=== PATIENT | female | born 1980 | race Caucasian/White ===

== ENCOUNTER 2018-06-13 12:32 | Emergency (ER) | payer SELFPAY ==
[2018-06-13] MEDS ORDERED: Morphine 2 MG/ML Syringe IVPUSH ONE ×3 (13:00→15:06)
[2018-06-13] MEDS ORDERED: Ondansetron 4 MG/2 ML SDV IVPUSH ONE (13:00)
[2018-06-13] MEDS ORDERED: Sodium Chloride 0.9% 2.5 ML Syringe FLUSH PRN (13:00)
[2018-06-13] MEDS ORDERED: Sodium Chloride 0.9% 10 ML Syringe FLUSH PRN (13:00)
--- NOTE | 2018-06-13 13:02 | EDM.PDOC ---
ED HPI GENERAL MEDICAL PROBLEM - General Chief Complaint: Abdominal Pain Stated Complaint: ABD PAIN Time Seen by Provider: 06/13/18 12:55 Source of Information: Reports: Patient History Limitations: Reports: No Limitations - History of Present Illness INITIAL COMMENTS - FREE TEXT/NARRATIVE: History of present illness: Patient had an IUD removed from an emergency room 3 days ago in [place] and now has abdominal swelling and severe pain in her lower abdomen. Patient denies any vaginal discharge or vaginal bleeding. Patient is mildly constipated no vomiting or fevers. The patient's labs came back normal I asked her if her abdominal swelling is really new, she stated no she's had abdominal swelling for a long time. Review of systems: As per history of present illness and below otherwise all systems reviewed and negative. Past medical history: As per history of present illness and as reviewed below otherwise noncontributory. Surgical history: As per history of present illness and as reviewed below otherwise noncontributory. Social history: No reported history of drug or alcohol abuse. Family history: As per history of present illness and as reviewed below otherwise noncontributory. Physical exam: General: Well developed, well nourished in NAD HEENT: Atraumatic, normocephalic, pupils reactive, negative for conjunctival pallor or scleral icterus, mucous membranes moist, throat clear, neck supple, nontender, trachea midline. Lungs: Clear to auscultation, breath sounds equal bilaterally, chest nontender. Heart: S1S2, regular, negative for clicks, rubs, or JVD. Abdomen: Soft, distended lower abdominal tenderness without rebound or guarding. Absent for fluid wave. Negative for masses or hepatosplenomegaly. Negative for costovertebral tenderness. Pelvis: Stable nontender. Genitourinary: Deferred. Rectal: Deferred. Extremities: Atraumatic, negative for cords or calf pain. Neurovascular unremarkable. Neuro: Awake, alert, oriented. Cranial nerves II through XII unremarkable. Cerebellum unremarkable. Motor and sensory unremarkable throughout. Exam nonfocal. Skin:warm and dry Diagnostics: CBC, chemistry, urine, hCG all negative CT abdomen and pelvis normal fluid and stranding in the perirectal pelvis, moderate intrahepatic ejection panic biliary dilatation of uncertain etiology mild constipation, hemorrhagic cyst of the right ovary and mildly enlarged heterogeneous ayla hepatis lymph node Therapeutics: IV fluids and pain meds given ED Course: Patient remained stable while in the ED Impression: PID, constipation, hepatitis C with chronic liver disease Prescriptions: Flagyl Plan: Follow-up women[facility] tomorrow Definitive disposition and diagnosis as appropriate pending reevaluation and review of above. 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 Musculoskeletal History: Reports: None - Infectious Disease History Infectious Disease History: Reports: Chicken Pox - Past Surgical History Musculoskeletal Surgical History: Reports: Other (See Below) Other Musculoskeletal Surgeries/Procedures:: neck surgery Social & Family History - Family History Family Medical History: Noncontributory - Tobacco Use Smoking Status *Q: Current Every Day Smoker Years of Tobacco use: 20 Packs/Tins Daily: 1 - Caffeine Use Caffeine Use: Reports: Coffee - Recreational Drug Use Recreational Drug Use: Yes Recreational Drug Type: Reports: Marijuana/Hashish Recreational Drug Use Frequency: Daily ED ROS GENERAL - Review of Systems Review Of Systems: ROS reveals no pertinent complaints other than HPI. ED EXAM, GI/ABD - Physical Exam Exam: See Below (See history of present illness) Course - Vital Signs Last Recorded V/S: Last Vital Signs Temp 98.5 F 06/13/18 12:38 Pulse 98 06/13/18 12:38 Resp 20 06/13/18 12:38 BP 128/89 06/13/18 12:38 Pulse Ox 98 06/13/18 12:38 - Orders/Labs/Meds Orders: Active Orders 24 hr Category Date Time Status Abdomen Pelvis w Cont [CT] Stat Exams 06/13/18 13:00 Taken Saline Lock Insert [OM.PC] Stat Oth 06/13/18 12:59 Ordered Labs: Laboratory Tests 06/13/18 06/13/18 06/13/18 Range/Units 12:59 13:50 14:20 WBC 6.14 (4.0-11.0) K/uL RBC 5.08 (4.30-5.90) M/uL Hgb 16.2 H (12.0-16.0) g/dL Hct 44.9 (36.0-46.0) % MCV 88.4 (80.0-98.0) fL MCH 31.9 (27.0-32.0) pg MCHC 36.1 (31.0-37.0) g/dL RDW Std Deviation 42.7 (28.0-62.0) fl RDW Coeff of Ronald 13 (11.0-15.0) % Plt Count 211 (150-400) K/uL MPV 9.60 (7.40-12.00) fL Neut % (Auto) 51.1 (48.0-80.0) % Lymph % (Auto) 40.4 H (16.0-40.0) % [place] % (Auto) 6.8 (0.0-15.0) % Eos % (Auto) 1.5 (0.0-7.0) % Baso % (Auto) 0.2 (0.0-1.5) % Neut # (Auto) 3.1 (1.4-5.7) K/uL Lymph # (Auto) 2.5 H (0.6-2.4) K/uL [place] # (Auto) 0.4 (0.0-0.8) K/uL Eos # (Auto) 0.1 (0.0-0.7) K/uL Baso # (Auto) 0.0 (0.0-0.1) K/uL Nucleated RBC % 0.0 /100WBC Nucleated RBCs # 0 K/uL Sodium (136-145) mmol/L Potassium (3.5-5.1) mmol/L Chloride (98-107) mmol/L Carbon Dioxide (21.0-32.0) mmol/L BUN (7.0-18.0) mg/dL Creatinine (0.6-1.0) mg/dL Est Cr Clr Drug Dosing mL/min Estimated GFR (MDRD) ml/min Glucose (74-106) mg/dL Calcium (8.5-10.1) mg/dL Total Bilirubin (0.2-1.0) mg/dL AST (15-37) IU/L ALT (14-63) IU/L Alkaline Phosphatase (46-116) U/L Total Protein (6.4-8.2) g/dL Albumin (3.4-5.0) g/dL Globulin (2.0-3.5) g/dL Albumin/Globulin Ratio (1.3-2.8) Urine Color YELLOW Urine Appearance CLEAR Urine pH 6.0 (5.0-8.0) Ur Specific [place] 1.015 (1.001-1.035) Urine Protein NEGATIVE (NEGATIVE) mg/dL Urine Glucose (UA) NEGATIVE (NEGATIVE) mg/dL Urine Ketones NEGATIVE (NEGATIVE) mg/dL Urine Occult Blood TRACE-INTACT (NEGATIVE) Urine Nitrite NEGATIVE (NEGATIVE) Urine Bilirubin NEGATIVE (NEGATIVE) Urine Urobilinogen 0.2 (<2.0) EU/dL Ur Leukocyte Esterase NEGATIVE (NEGATIVE) Urine RBC 2-5 (0-2/HPF) Urine WBC 0-2 (0-5/HPF) Ur Epithelial Cells FEW (NONE-FEW) Urine Bacteria FEW (NEGATIVE) Urine HCG, Qual NEGATIVE (NEGATIVE) 06/13/18 Range/Units 14:20 WBC (4.0-11.0) K/uL RBC (4.30-5.90) M/uL Hgb (12.0-16.0) g/dL Hct (36.0-46.0) % MCV (80.0-98.0) fL MCH (27.0-32.0) pg MCHC (31.0-37.0) g/dL RDW Std Deviation (28.0-62.0) fl RDW Coeff of Ronald (11.0-15.0) % Plt Count (150-400) K/uL MPV (7.40-12.00) fL Neut % (Auto) (48.0-80.0) % Lymph % (Auto) (16.0-40.0) % [place] % (Auto) (0.0-15.0) % Eos % (Auto) (0.0-7.0) % Baso % (Auto) (0.0-1.5) % Neut # (Auto) (1.4-5.7) K/uL Lymph # (Auto) (0.6-2.4) K/uL [place] # (Auto) (0.0-0.8) K/uL Eos # (Auto) (0.0-0.7) K/uL Baso # (Auto) (0.0-0.1) K/uL Nucleated RBC % /100WBC Nucleated RBCs # K/uL Sodium 135 L (136-145) mmol/L Potassium 4.6 (3.5-5.1) mmol/L Chloride 101 (98-107) mmol/L Carbon Dioxide 26.7 (21.0-32.0) mmol/L BUN 17 (7.0-18.0) mg/dL Creatinine 0.9 (0.6-1.0) mg/dL Est Cr Clr Drug Dosing 69.42 mL/min Estimated GFR (MDRD) > 60.0 ml/min Glucose 90 (74-106) mg/dL Calcium 9.0 (8.5-10.1) mg/dL Total Bilirubin 0.5 (0.2-1.0) mg/dL AST 33 (15-37) IU/L ALT 44 (14-63) IU/L Alkaline Phosphatase 46 (46-116) U/L Total Protein 8.2 (6.4-8.2) g/dL Albumin 4.1 (3.4-5.0) g/dL Globulin 4.1 H (2.0-3.5) g/dL Albumin/Globulin Ratio 1.0 L (1.3-2.8) Urine Color Urine Appearance Urine pH (5.0-8.0) Ur Specific [place] (1.001-1.035) Urine Protein (NEGATIVE) mg/dL Urine Glucose (UA) (NEGATIVE) mg/dL Urine Ketones (NEGATIVE) mg/dL Urine Occult Blood (NEGATIVE) Urine Nitrite (NEGATIVE) Urine Bilirubin (NEGATIVE) Urine Urobilinogen (<2.0) EU/dL Ur Leukocyte Esterase (NEGATIVE) Urine RBC (0-2/HPF) Urine WBC (0-5/HPF) Ur Epithelial Cells (NONE-FEW) Urine Bacteria (NEGATIVE) Urine HCG, Qual (NEGATIVE) Meds: Medications Discontinued Medications Generic Name Dose Route Start Last Admin Trade Name Freq PRN Reason Stop Dose Admin Azithromycin 1,000 mg 06/13/18 17:00 06/13/18 16:58 Zithromax PO 06/13/18 17:01 1,000 mg Q24H ONE Administration Hydromorphone HCl 1 mg 06/13/18 13:37 06/13/18 17:20 Dilaudid IM 06/13/18 13:38 Not Given ONETIME ONE Ceftriaxone Sodium/Dextrose 1 50 mls @ 100 mls/hr 06/13/18 16:45 06/13/18 16: 57 gm/ Premix IV 06/13/18 17:14 100 mls/hr ONETIME ONE Administration Iopamidol 75 ml 06/13/18 16:54 06/13/18 16:55 Isovue Multipack-370 (76%) IVPUSH 06/13/18 16:55 75 ml ONETIME STA Administration Morphine Sulfate 4 mg 06/13/18 13:00 06/13/18 15:10 Morphine IVPUSH 06/13/18 13:01 4 mg ONETIME ONE Administration Morphine Sulfate 4 mg 06/13/18 13:38 06/13/18 14:01 Morphine IVPUSH 06/13/18 13:39 Not Given ONETIME ONE Morphine Sulfate 4 mg 06/13/18 13:42 06/13/18 13:44 Morphine IM 06/13/18 13:43 4 mg ONETIME ONE Administration Morphine Sulfate 4 mg 06/13/18 15:06 06/13/18 17:20 Morphine IVPUSH 06/13/18 15:07 Not Given ONETIME ONE Ondansetron HCl 4 mg 06/13/18 13:00 06/13/18 17:20 Zofran IVPUSH 06/13/18 13:01 Not Given ONETIME ONE Ondansetron HCl 4 mg 06/13/18 13:37 06/13/18 13:42 Zofran Odt PO 06/13/18 13:38 4 mg ONETIME ONE Administration Sodium Chloride 10 ml 06/13/18 13:00 Saline Flush FLUSH ASDIRECTED PRN Keep Vein Open Sodium Chloride 2.5 ml 06/13/18 13:00 Saline Flush FLUSH ASDIRECTED PRN Keep Vein Open Departure - Departure Time of Disposition: 17:30 Disposition: Home, Self-Care 01 Condition: Good Clinical Impression: Acute PID (pelvic inflammatory disease) - Discharge Information *PRESCRIPTION DRUG MONITORING PROGRAM REVIEWED*: No *COPY OF PRESCRIPTION DRUG MONITORING REPORT IN PATIENT SARINA: No Prescriptions: metroNIDAZOLE [Flagyl] 500 mg PO Q8H #30 tab Instructions: Pelvic Inflammatory Disease, [id number] Referrals: PCP,None [Primary Care Provider] - Forms: ED Department Discharge Additional Instructions: The following information is given to patients seen in the emergency department who are being discharged to home. This information is to outline your options for follow-up care. We provide all patients seen in our emergency department with a follow-up referral. The need for follow-up, as well as the timing and circumstances, are variable depending upon the specifics of your emergency department visit. If you don't have a primary care physician on staff, we will provide you with a referral. We always advise you to contact your personal physician following an emergency department visit to inform them of the circumstance of the visit and for follow-up with them and/or the need for any referrals to a consulting specialist. The emergency department will also refer you to a specialist when appropriate. This referral assures that you have the opportunity for follow-up care with a specialist. All of these measure are taken in an effort to provide you with optimal care, which includes your follow-up. Under all circumstances we always encourage you to contact your private physician who remains a resource for coordinating your care. When calling for follow-up care, please make the office aware that this follow-up is from your recent emergency room visit. If for any reason you are refused follow-up, please contact the [facility] Emergency Department at and asked to speak to the emergency department charge nurse. Rubi as [facility]. [facility] Primary Care - Women's [facility] [address] [place] [id number] - My Orders Last 24 Hours: My Active Orders 06/13/18 12:59 Saline Lock Insert [OM.PC] Stat 06/13/18 13:00 Abdomen Pelvis w Cont [CT] Stat - Assessment/Plan Last 24 Hours: My Active Orders 06/13/18 12:59 Saline Lock Insert [OM.PC] Stat 06/13/18 13:00 Abdomen Pelvis w Cont [CT] Stat
[2018-06-13] MEDS ORDERED: Ondansetron 4 MG Tab.DIS PO ONE (13:37)
[2018-06-13] MEDS ORDERED: HYDROmorphone 2 MG/ML SDV IM ONE (13:37)
[2018-06-13] MEDS ORDERED: Morphine 2 MG/ML Syringe IM ONE (13:42)
[2018-06-13 14:56] LABS: CHLORIDE,CL 101 mmol/L (98-107); SODIUM,NA 135 mmol/L (136-145)
[2018-06-13] MEDS ORDERED: cefTRIAXone 1 GM in Premix Bag 1 BAG IV ONE (16:45)
[2018-06-13] MEDS ORDERED: Iopamidol 755 MG/ML 200 ML Multipack Bottle IVPUSH STA (16:54)
[2018-06-13] MEDS ORDERED: Azithromycin 250 MG Tab PO ONE (17:00)
--- NOTE | 2018-06-14 10:27 | PCM.SN ---
- Free Text/Narrative Note: Called to ER for IV start on pt. with hx of IV drug use as well as hx of difficult IV placement. 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 Unsuccessful attempt to start IV times 2 attempts. Ultrasound utilized on third attempt and successful placement of 20ga IV catheter to left upper arm achieved. Pt tolerated procedure well.
--- NOTE | 2018-06-15 10:32 | CT ---
EXAM DATE: 06/13/18 PATIENT'S AGE: 37 Patient: COLTON STUBBS Facility: [place], [place] Site . Site : 1980 Study: CT Abdomen/Pelvis [id number]/[id number] 3:50:10 PM Ordering Physician: Franki Denise Final Report: INDICATION: Abdominal pain and distention. Pain. Status post IUD removal. TECHNIQUE: CT of the abdomen and pelvis performed after IV injection of 75 mL of Isovue- 370. FINDINGS: Bilateral breast implants. Small to moderate amounts of stool in the colon greatest in the right colon suggests a mild degree of constipation. Small calcified granuloma in the right lower lobe. The gallbladder remains present. Moderate intrahepatic and extrahepatic biliary dilatation without an identifiable etiology. If desired, MRCP would be the best test to further characterize the etiology of the biliary dilatation. Small cyst in the left kidney. Enlarged ayla hepatis lymph node measuring 2 cm on image 37. Increased number of small lymph nodes in the left periaortic region. Small peripherally enhancing lesion in the right ovary which is somewhat prominent size. Findings would be consistent hemorrhagic cyst. Small amounts of fluid and stranding in the perirectal region. Uterus mildly heterogeneous. Appendix normal. Remainder negative. IMPRESSION: 1. Minimal fluid and stranding in the perirectal pelvis nonspecific. 2. Moderate intrahepatic and extrahepatic biliary dilatation of uncertain etiology. If clinically desired MRCP would be the best test to further characterize this. 3. Mild constipation. 4. Small hemorrhagic cyst right ovary. 5. Mildly enlarged heterogeneous ayla-hepatis lymph node. Other findings as above. Please note that all CT scans at this facility use dose modulation, iterative reconstruction, and/or weight-based dosing when appropriate to reduce radiation dose to as low as reasonably achievable. Dictated by Dario Mondragon MD @ Jun 13 2018 4:02PM (Electronic Signature) Report Signed by Proxy. CODY
== END 2018-06-13 17:31 | disposition home or self-care (01) ==
LOC: MW.ED 12:32
DX: N73.0 Acute parametritis and pelvic cellulitis (principal); K59.00 Constipation, unspecified; B19.20 Unspecified viral hepatitis C without hepatic coma; Z91.040 Latex allergy status; F17.210 Nicotine dependence, cigarettes, uncomplicated
CPT/HCPCS: 74177; 80053; 81001; 81025; 85025; 96365; 96372; 96375; 99284; A9270; J0696; J2270; Q9967

== ENCOUNTER 2019-01-11 17:39 | Emergency (ER) | payer SELFPAY ==
--- NOTE | 2019-01-11 17:47 | EDM.PDOC ---
ED HPI GENERAL MEDICAL PROBLEM - General Chief Complaint: Gastrointestinal Problem Stated Complaint: COUGH Time Seen by Provider: 01/11/19 17:43 - History of Present Illness INITIAL COMMENTS - FREE TEXT/NARRATIVE: HISTORY AND PHYSICAL: History of present illness: Patient's 38-year-old female who is a smoker presents with concern of cough also had nausea and vomiting with diarrhea and no fever chills no other complaints she denies history of asthma or COPD. There's been no fever chills or other concern Review of systems: As per history of present illness and below otherwise all systems reviewed and negative. Past medical history: As per history of present illness and as reviewed below otherwise noncontributory. Surgical history: As per history of present illness and as reviewed below otherwise noncontributory. Social history: No reported history of drug or alcohol abuse. Family history: As per history of present illness and as reviewed below otherwise noncontributory. Physical exam: HEENT: Atraumatic, normocephalic, pupils reactive, negative for conjunctival pallor or scleral icterus, mucous membranes moist, throat clear, neck supple, nontender, trachea midline. Lungs: Inspiratory extra wheezing noted bilaterally, breath sounds equal bilaterally, chest nontender. Heart: S1S2, regular, negative for clicks, rubs, or JVD. Abdomen: Soft, nondistended, nontender. Negative for masses or hepatosplenomegaly. Negative for costovertebral tenderness. Pelvis: Stable nontender. Genitourinary: Deferred. Rectal: Deferred. Extremities: Atraumatic, negative for cords or calf pain. Neurovascular unremarkable. Neuro: Awake, alert, oriented. Cranial nerves II through XII unremarkable. Cerebellum unremarkable. Motor and sensory unremarkable throughout. Exam nonfocal. Diagnostics: CBC CMP hCG chest x-ray influenza screen Therapeutics: Saline 1 L bolus Zofran 4 mg IV albuterol ipratropium nebulizer Impression: #1 tracheobronchitis #2 vomiting/diarrhea Definitive disposition and diagnosis as appropriate pending reevaluation and review of above. - Related Data Allergies Allergy/AdvReac Type Severity Reaction Status Date / Time latex Allergy Rash Verified 01/11/19 17:42 Home Meds: Home Meds . 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 ED EXAM, GENERAL - Physical Exam Exam: See Below (See dictation) Course - Vital Signs Last Recorded V/S: Last Vital Signs Temp 36.1 C 01/11/19 17:42 Pulse 103 H 01/11/19 17:42 Resp 18 01/11/19 17:42 BP 121/70 01/11/19 17:42 Pulse Ox 99 01/11/19 18:20 - Orders/Labs/Meds Orders: Active Orders 24 hr Category Date Time Status RT Aerosol Therapy [RC] ASDIRECTED Care 01/11/19 17:48 Active RT Aerosol Therapy [RC] ASDIRECTED Care 01/11/19 19:07 Active Chest 1V Frontal [CR] Stat Exams 01/11/19 17:44 Taken COMPREHENSIVE METABOLIC PN,CMP [CHEM] Stat Lab 01/11/19 19:10 Received LIPASE [CHEM] Stat Lab 01/11/19 19:10 Received Labs: Laboratory Tests 01/11/19 01/11/19 Range/Units 19:10 19:10 WBC 9.83 (4.0-11.0) K/uL RBC 4.39 (4.30-5.90) M/uL Hgb 16.1 H (12.0-16.0) g/dL Hct 37.5 (36.0-46.0) % MCV 85.4 (80.0-98.0) fL MCH 31.3 (27.0-32.0) pg MCHC 37.4 H (31.0-37.0) g/dL RDW Std Deviation 38.4 (28.0-62.0) fl RDW Coeff of Ronald 13 (11.0-15.0) % Plt Count 222 (150-400) K/uL MPV 9.80 (7.40-12.00) fL Neut % (Auto) 62.1 (48.0-80.0) % Lymph % (Auto) 26.7 (16.0-40.0) % Bennett % (Auto) 9.6 (0.0-15.0) % Eos % (Auto) 1.4 (0.0-7.0) % Baso % (Auto) 0.2 (0.0-1.5) % Neut # (Auto) 6.1 H (1.4-5.7) K/uL Lymph # (Auto) 2.6 H (0.6-2.4) K/uL [place] # (Auto) 0.9 H (0.0-0.8) K/uL Eos # (Auto) 0.1 (0.0-0.7) K/uL Baso # (Auto) 0.0 (0.0-0.1) K/uL Nucleated RBC % 0.0 /100WBC Nucleated RBCs # 0 K/uL HCG, Qual NEGATIVE (NEG) Meds: Medications Discontinued Medications Generic Name Dose Route Start Last Admin Trade Name Freq PRN Reason Stop Dose Admin Albuterol/Ipratropium 3 ml 01/11/19 17:47 01/11/19 18:20 Duoneb 3.0-0.5 Mg/3 Ml NEB 01/11/19 17:48 3 ml ONETIME ONE Administration Albuterol/Ipratropium 3 ml 01/11/19 19:07 01/11/19 19:15 Duoneb 3.0-0.5 Mg/3 Ml NEB 01/11/19 19:08 3 ml ONETIME ONE Administration Benzocaine/Menthol 1 lozenge 01/11/19 19:55 Cepacol Sore Throat MUCMEM 01/11/19 19:56 NOW STA Sodium Chloride 1,000 mls @ 999 mls/hr 01/11/19 17:44 01/11/19 18:45 Normal Saline IV 01/11/19 18:44 999 mls/hr STAT ONE Administration Ondansetron HCl 4 mg 01/11/19 17:44 01/11/19 18:49 Zofran IVPUSH 01/11/19 17:45 4 mg ONETIME ONE Administration Ondansetron HCl 4 mg 01/11/19 18:26 01/11/19 18:32 Zofran Odt PO 01/11/19 18:27 4 mg ONETIME ONE Administration Departure - Departure Time of Disposition: 17:47 Disposition: Home, Self-Care 01 Condition: Good Clinical Impression: Tracheobronchitis, Gastroenteritis - Discharge Information Forms: ED Department Discharge Additional Instructions: The following information is given to patients seen in the emergency department who are being discharged to home. This information is to outline your options for follow-up care. We provide all patients seen in our emergency department with a follow-up referral. The need for follow-up, as well as the timing and circumstances, are variable depending upon the specifics of your emergency department visit. If you don't have a primary care physician on staff, we will provide you with a referral. We always advise you to contact your personal physician following an emergency department visit to inform them of the circumstance of the visit and for follow-up with them and/or the need for any referrals to a consulting specialist. The emergency department will also refer you to a specialist when appropriate. This referral assures that you have the opportunity for followup care with a specialist. All of these measure are taken in an effort to provide you with optimal care, which includes your followup. Under all circumstances we always encourage you to contact your private physician who remains a resource for coordinating your care. When calling for followup care, please make the office aware that this follow-up is from your recent emergency room visit. If for any reason you are refused follow-up, please contact the [facility] emergency department at and asked to speak to the emergency department charge nurse. [facility] Primary [facility] [address] [place] [id number] Albuterol Z-Da Zofran as prescribed stop smoking follow-up with primary medical doctor and/or clinic call to schedule routine appointment return as needed as discussed - My Orders Last 24 Hours: My Active Orders 01/11/19 17:44 Chest 1V Frontal [CR] Stat 01/11/19 17:48 RT Aerosol Therapy [RC] ASDIRECTED 01/11/19 19:07 RT Aerosol Therapy [RC] ASDIRECTED 01/11/19 19:10 COMPREHENSIVE METABOLIC PN,CMP [CHEM] Stat LIPASE [CHEM] Stat - Assessment/Plan Last 24 Hours: My Active Orders 01/11/19 17:44 Chest 1V Frontal [CR] Stat 01/11/19 17:48 RT Aerosol Therapy [RC] ASDIRECTED 01/11/19 19:07 RT Aerosol Therapy [RC] ASDIRECTED 01/11/19 19:10 COMPREHENSIVE METABOLIC PN,CMP [CHEM] Stat LIPASE [CHEM] Stat
[2019-01-11] MEDS: Albuterol/Ipratropium 3.0-0.5 MG/3 ML Neb Soln NEB ONE ×2 (18:20→19:15)
[2019-01-11] MEDS: Ondansetron 4 MG Tab.DIS PO ONE (18:32)
[2019-01-11] MEDS: Sodium Chloride 0.9% 1,000 ML IV ONE (18:45)
[2019-01-11] MEDS: Ondansetron 4 MG/2 ML SDV IVPUSH ONE (18:49)
[2019-01-11] MEDS: Benzocaine/Cetylpyridinium/Menthol Lozenge MUCMEM STA (20:02)
--- NOTE | 2019-01-11 20:18 | CR ---
INDICATION: Pt w/cough. Pt denies . Pt shielded. TECHNIQUE: Chest 1 view. COMPARISON: None. FINDINGS: Cardiovascular and mediastinum: Heart size and vasculature are normal in caliber and appearance. Mediastinum is within normal limits. Lungs and pleural space: Lungs are clear. No sign of infiltrate or mass. No sign of pleural effusion. No pneumothorax. Bones and soft tissues: No significant findings. IMPRESSION: Unremarkable chest. Dictated by: Ephraim Gallardo MD @ 01/11/2019 20:17:23 (Electronically Signed)
== END 2019-01-11 20:35 | disposition home or self-care (01) ==
LOC: MW.ED 17:39
DX: J40 Bronchitis, not specified as acute or chronic (principal); K52.9 Noninfective gastroenteritis and colitis, unspecified; Z91.040 Latex allergy status
CPT/HCPCS: 36415; 71045; 80053; 83690; 84703; 85025; 87804; 94640; 96361; 96374; 99284; A9270; J2405; J7040; J7620-GY